=== PATIENT | female | born 1935 | race Caucasian/White ===

== ENCOUNTER 2017-04-27 09:13 | Day surgery (SDC) | payer MEDICARE, OTHER ==
[2017-04-27 11:15] LABS: INR 1.03 (0.87-1.13)
[2017-04-27 11:16] LABS: Partial Thromboplastin Time 34.2 Sec. (24.2-36.6)
--- NOTE | 2017-04-27 13:13 | Ultrasound Report ---
ULTRASOUND-GUIDED PARACENTESIS INDICATION: Ascites. Bone cancer. COMPARISON: None similar. FINDINGS: After explaining the risk and benefits to the patient, written informed consent obtained. Using ultrasound guidance, an appropriate skin site in the right mid abdomen laterally marked. Skin prepped and draped in the usual sterile fashion. 1% Xylocaine used for local anesthesia. Using ultrasound guidance, a 5 Micronesian TrueVaulteh catheter was placed into the fluid collection and 3500 cc of straw-colored fluid aspirated. Sample sent to laboratory. Catheter removed and hemostasis achieved. Patient tolerated the procedure well and left the radiology department in stable condition. CONCLUSION: Ultrasound guided paracentesis, as described above. Dr. Crisostomo present for and performed the entire procedure. Thank you for the opportunity to participate in this patient's care.
--- NOTE | 2017-04-27 13:17 | Short Stay Summary ---
Short Stay Documentation Date of service: 04/27/17 - History Past Medical History: cancer - Allergies and Medications Current Medications: Allergies No Known Allergies Allergy (Verified 04/27/17 10:37) Home Medications Medication Instructions Recorded Confirmed Last Taken Type Levothyroxine [Synthroid] 75 mcg PO QAM 04/27/17 04/27/17 04/26/17 History Lisinopril [Zestril] 20 mg PO QDAY 04/27/17 04/27/17 04/26/17 History Simvastatin [Simvastatin] 20 mcg PO DAILY 04/27/17 04/27/17 04/26/17 History glipiZIDE [glipiZIDE XL] 10 mg PO DAILY 04/27/17 04/27/17 04/26/17 History - Physical exam General appearance: no acute distress - Brief post op/procedure progress note Date of procedure: 04/27/17 Pre-op diagnosis: Ascites, Bone cancer Post-op diagnosis: same Procedure: US guided paracentesis Anesthesia: local Findings: 3500 cc yellow serous fluid removed. Surgeon: FRANCISCA DAHL Estimated blood loss: none Specimen disposition: to lab Condition: stable - Disposition Condition at discharge: Stable Disposition: DC-01 TO HOME OR SELFCARE Short Stay Discharge Plan Follow up with: JINA PEREIRA MD [Primary Care Provider] - 7 Days
[2017-04-27 16:08] VITALS: BP 129/48
== END 2017-04-27 12:40 | disposition home or self-care (01) ==
LOC: CATHLABREC 09:13 → US 09:13 → CATHLABREC 12:40
PROVIDERS: ATTEND Internal Medicine Hematology & Oncology
DX: R18.8 Other ascites (principal)
CPT/HCPCS: 36415; 49083; 85610; 85730; 88112; 88305; 88341; 88342; 88361

== ENCOUNTER 2017-05-05 07:31 | Day surgery (SDC) | payer MEDICARE, OTHER ==
[~2017-05-05 07:31] MED LIST: ANCEF/STERILE WATER 2 GM/20 ML 2 GM/20 ML SYRINGE IV NR; NACL 0.9% 1000 ML 1,000 ML IV SCH
[2017-05-05 08:27] LABS: Hematocrit 35.6 % (30.3-42.9); Hemoglobin 11.6 gm/dl (10.1-14.3); Mean Corpuscular HGB Conc 33 % (30-34); Mean Corpuscular Hemoglobin 34 pg (28-32); Mean Corpuscular Volume 104 fl (79-97); Platelet Count 164 K/mm3 (140-440); Red Blood Count 3.42 M/mm3 (3.65-5.03); White Blood Count 10.6 K/mm3 (4.5-11.0)
[2017-05-05 08:38] LABS: INR 1.08 (0.87-1.13)
[2017-05-05 08:39] LABS: Partial Thromboplastin Time 32.5 Sec. (24.2-36.6)
[2017-05-05 08:41] LABS: Red Cell Distribution Width 22.7 % (13.2-15.2)
[2017-05-05 09:21] LABS: BUN/Creatinine Ratio 30.66; Calcium 6.9 mg/dL (8.4-10.2); Chloride 100.8 mmol/L (98-107)
[2017-05-05 09:25] LABS: Basophils % (Manual) 0 % (0.0-1.8); Blastocytes % (Manual) 0 %
[2017-05-05 09:31] LABS: Elliptocytes Rare; Poikilocytosis 1+; Tear Drop Cells Rare
[2017-05-05 09:36] LABS: Diff Status Complete; Platelet Estimate Consistent w Auto
[2017-05-05 09:37] LABS: Anisocytosis 1+
[2017-05-05] MEDS ORDERED: D50W (25GM) Syringe IV ONE (10:00)
[2017-05-05] MEDS ORDERED: XYLOCAINE 2% INFILTRATI ONE (10:26)
[2017-05-05] MEDS ORDERED: VERSED ONE (10:26)
[2017-05-05] MEDS ORDERED: HEPARIN/NS 5000 UNIT/500ML(CATH LAB) 500 ML IR ONE (10:26)
[2017-05-05] MEDS ORDERED: SUBLIMAZE ONE (10:26)
--- NOTE | 2017-05-05 10:41 | Short Stay Summary ---
Short Stay Documentation Date of service: 05/05/17 - History Principal diagnosis: Malignant breast cancer Past Medical History: cancer, other (ascites) Past Surgical History: Other Social history: no significant social history - Allergies and Medications Current Medications: Allergies No Known Allergies Allergy (Verified 04/27/17 10:37) Home Medications Medication Instructions Recorded Confirmed Last Taken Type Levothyroxine [Synthroid] 75 mcg PO QAM 04/27/17 05/05/17 05/05/17 History Lisinopril [Zestril] 20 mg PO QDAY 04/27/17 05/05/17 05/05/17 History Simvastatin [Simvastatin] 20 mcg PO DAILY 04/27/17 05/05/17 05/05/17 History glipiZIDE [glipiZIDE XL] 10 mg PO DAILY 04/27/17 05/05/17 05/04/17 History Active Medications Cefazolin Sodium (Ancef/Sterile Water 2 Gm/20 Ml) 2 gm in 20 mls @ 80 mls/hr IV PREOP NR PRN Reason: Protocol Stop: 05/05/17 23:59 Sodium Chloride (Nacl 0.9% 1000 Ml) 1,000 mls @ 42 mls/hr IV DIRECT AD Last Admin: 05/05/17 08:46 Dose: 42 mls/hr - Physical exam General appearance: no acute distress Integumentary: no rash HEENT: Atraumatic, PERRLA Lungs: Normal air movement Breasts: deferred Heart: Regular rate Gastrointestinal: normal, no tenderness, distended Female Genitourinary: deferred Rectal Exam: deferred Extremities: no ischemia Neurological: Normal speech, Normal tone - Brief post op/procedure progress note Date of procedure: 05/05/17 Pre-op diagnosis: 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
[2017-05-05] MEDS ORDERED: ANCEF/STERILE WATER 2 GM/20 ML 2 GM/20 ML SYRINGE IV ONE (11:05)
[2017-05-05 13:12] VITALS: BP 120/52
--- NOTE | 2017-05-05 15:08 | Operative Report ---
Operative Report Operative Report: EXAM: ULTRASOUND AND FLUOROSCOPIC GUIDED PLACEMENT OF TUNNELED PERITONEAL DRAINAGE CATHETER CLINICAL INDICATION: PATIENT WITH METASTATIC BREAST CANCER AND MALIGNANT ASCITES DATE: 05/05/2017 PROCEDURE: Following an explanation of the risks, benefits and alternatives; written informed consent was obtained. The patient was brought to the angiographic suite and placed in supine position on the examination table. Initial ultrasound evaluation of the abdomen demonstrated a moderate amount of ascites. In appropriate exit site was chosen along the lateral right palatal wall. The catheter exit site was chosen anterior and inferior to the site. The patient's abdomen was prepped and draped in the usual sterile fashion. 1% lidocaine was used for anesthesia. Under ultrasound guidance, a 7 cm 18-gauge needle was advanced into the peritoneal fluid. The tip of the needle was visualized in the fluid and in image saved. A 0.035 guidewire was then advanced through the needle and coiled within the peritoneal cavity. The needle was removed. An appropriate catheter exit site was chosen anterior and inferior to the dermatotomy site. 1% lidocaine was used for anesthesia at the catheter exit site and along the tunnel tract. A Bard Aspira tunneled peritoneal catheter was then tunneled from the catheter exit site to the dermatotomy site. Following serial dilation over the guidewire under fluoroscopy, a 16 Setswana peel -away sheath was placed over the guidewire under fluoroscopy. The guidewire and trocar were removed. The peritoneal catheter was then advanced through the peel-away sheath into the peritoneal cavity. Peel-away sheath was removed. There was prompt drainage of clear yellow ascitic fluid. A total of 1 L was aspirated the patient was in the room. The dermatotomy was closed using 3-0 Vicryl suture. Thrill Vicryl suture was also applied to the catheter exit site. Dermabond was also applied to the dermatotomy site and catheter exit site and a sterile dressing applied. The patient tolerated the procedure well. There were no immediate post procedure competitions. Conscious sedation was performed under the guidance of radiologic nursing. Continuous cardiopulmonary monitoring was utilized. IMPRESSION: 1) Ultrasound and fluoroscopic guided placement of tunneled peritoneal drainage catheter with 1 L of clear yellow ascitic fluid aspirated. A sample was sent for laboratory analysis. The patient was in the recovery room , the patient and her were trained on the use of the peritoneal drainage catheter and supplies were given to the patient.
== END 2017-05-05 13:30 | disposition home or self-care (01) ==
LOC: CATHLABREC 07:31
PROVIDERS: ATTEND Radiology Diagnostic Radiology
DX: C80.1 Malignant (primary) neoplasm, unspecified (principal); C79.81 Secondary malignant neoplasm of breast; R18.0 Malignant ascites; Z79.01 Long term (current) use of anticoagulants; Z79.899 Other long term (current) drug therapy
CPT/HCPCS: 36415; 49418; 80048; 82962; 85007; 85025; 85610; 85730; 87116; 96374; J0690; J1644; J2250; J3010; J7030